=== PATIENT | female | born 1990 | race Caucasian/White ===

== ENCOUNTER 2018-06-07 15:35 | Inpatient (IN) | payer BC, SELFPAY ==
[~2018-06-07] VITALS: Ht 160 cm; Wt 69.9 kg
[~2018-06-07 15:35] MED LIST: LIDOCAINE PF 1% 30ML(POUR BTL) INJ ONE; MINERAL OIL 30 ML UDC PO ONE
[2018-06-07] MEDS ORDERED: OXYTOCIN/0.9 % SODIUM CHLORIDE 1,000 ML IV SCH (18:06)
[2018-06-07] MEDS ORDERED: DINOPROSTONE 10 MG SUPP VG ONE (18:15)
[2018-06-07] MEDS ORDERED: TERBUTALINE SULFATE 1 MG/ML VIAL SUBCUT ONE (18:15)
[2018-06-07 18:55] VITALS: BP_SYST 111
[2018-06-07 19:05] LABS: BASOPHILS % (AUTO) 0.4 % (0.0-2.0); EOSINOPHILS % (AUTO) 0.5 % (0.0-4.0); HEMATOCRIT 34.5 % (36-48); HEMOGLOBIN 11.8 g/dL (12.0-16.0); LYMPHOCYTES # (AUTO) 1.7 K/uL (1.0-5.5); LYMPHOCYTES % (AUTO) 18.1 % (20.5-51.5); MEAN CORPUSCULAR HEMOGLOBIN 34 pg (27-31); MEAN CORPUSCULAR HGB CONC 34 % (32-36); MEAN CORPUSCULAR VOLUME 99 fL (79.0-98.0); MONOCYTES # (AUTO) 0.6 K/uL (0.0-1.0); NEUTROPHILS # (AUTO) 7.3 K/uL (1.8-7.7); PLATELET COUNT (AUTO) 248 K/uL (130-430); RED BLOOD CELL COUNT(AUTO) 3.48 MIL/uL (4.2-6.2); RED CELL DISTRIBUTION WIDTH 12.1 % (9.0-15.0); WHITE BLOOD COUNT (AUTO) 9.6 K/uL (4.8-10.8)
[2018-06-07] MEDS ORDERED: BUPIVACAINE /PF 0.5% 30 ML VIAL EP ONE ×2 (20:00)
[2018-06-07] MEDS ORDERED: cefTRIAXone 1 GM VIAL ONE (21:00)
[2018-06-07] MEDS: cefTRIAXone 1 GM in D5W 50 ML IV SCH (21:00)
[2018-06-08] MEDS: LR 1,000 ML IV SCH ×3 (05:17→18:00)
[2018-06-08] MEDS: NALBUPHINE HCL 10 MG/ML AMP IVP PRN ×2 (13:08→18:50)
[2018-06-08] MEDS ORDERED: fentaNYL CITRATE/PF 100 MCG/2 ML AMP ONE ×3 (13:11→18:18)
[2018-06-08] MEDS ORDERED: ROPIVACAINE 0.2% 100 ML ONE ×2 (13:11→18:18)
[2018-06-08] MEDS ORDERED: LR 500 ML IV ONE (13:39)
[2018-06-08] MEDS ORDERED: FENT2mCg/mL-ROPIVA0.2%/NS EPID 150 ML EP SCH (13:45)
[2018-06-08] MEDS ORDERED: fentaNYL CITRATE/PF 100 MCG/2 ML AMP EP ONE (18:00)
[2018-06-08] MEDS: cefTRIAXone 1 GM in D5W 50 ML IV SCH (21:00)
[2018-06-09] MEDS: LR 1,000 ML IV SCH ×2 (00:20→09:30)
[2018-06-09] MEDS ORDERED: ROPIVACAINE 0.2% 100 ML ONE (02:34)
[2018-06-09] MEDS ORDERED: ACETAMINOPHEN 325 MG TABLET PO PRN ×2 (06:15→11:15)
[2018-06-09] MEDS ORDERED: cefTRIAXone 1 GM IVPB PREMIX 50 ML IV ONE ×2 (06:15→06:42)
[2018-06-09] MEDS ORDERED: ACETAMINOPHEN 325 MG TABLET ONE (06:32)
[2018-06-09] MEDS ORDERED: fentaNYL CITRATE/PF 100 MCG/2 ML AMP ONE (08:22)
[2018-06-09] MEDS ORDERED: OXYTOCIN/0.9 % SODIUM CHLORIDE 1,000 ML IV ONE (11:03)
[2018-06-09] MEDS ORDERED: OXYTOCIN/0.9 % SODIUM CHLORIDE 1,000 ML IV SCH (11:03)
[2018-06-09] MEDS ORDERED: RHO(D) IMMUNE GLOBULIN/MALTOSE 1500 UNITS/1.3 ML (WINHRO) IM PRN (11:15)
[2018-06-09] MEDS ORDERED: SENNOSIDES/DOCUSATE SODIUM 1 TAB TABLET(SENOKOT-S) PO PRN (11:15)
[2018-06-09] MEDS ORDERED: HYDROCORTISONE 0.5%, 28.35 GM TOPICAL CREAM TP PRN (11:15)
[2018-06-09] MEDS ORDERED: MEASLES,MUMPS&RUBELLA VACC/PF 12500 UNIT/0.5 ML VIAL SUBQ PRN (11:15)
[2018-06-09] MEDS ORDERED: WITCH HAZEL LEAF 1 MED.PAD MED.PAD TP PRN (11:15)
[2018-06-09] MEDS ORDERED: METHYLERGONOVINE MALEATE 0.2 MG TABLET PO PRN (11:15)
[2018-06-09] MEDS ORDERED: LANOLIN 7 GM OINT. TP PRN (11:15)
[2018-06-09] MEDS ORDERED: ANUSOL 1 EA SUPP.RECT (PREPARATION H) RC PRN (11:15)
[2018-06-09] MEDS ORDERED: DERMOPLAST SPRAY TP PRN (11:15)
[2018-06-09] MEDS ORDERED: DIPH-TET-PERTUS Vaccine 0.5 ML VIAL (ADACEL) I.M. PRN (11:15)
[2018-06-09] MEDS ORDERED: OXYCODONE/ACETAMINOPHEN 5-325 TABLET PO PRN ×2 (11:15)
[2018-06-09] MEDS: IBUPROFEN 600 MG TABLET PO SCH ×2 (12:28→17:54)
[2018-06-09] MEDS: DOCUSATE SODIUM 100 MG CAPSULE PO PRN (17:54)
[2018-06-09] MEDS ORDERED: TEMAZEPAM 15 MG CAPSULE PO PRN (21:00)
[2018-06-10] MEDS: IBUPROFEN 600 MG TABLET PO SCH ×3 (00:07→12:34)
[2018-06-10 07:21] LABS: HEMATOCRIT 26.2 % (36-48); HEMOGLOBIN 8.6 g/dL (12.0-16.0)
[2018-06-10] MEDS: DOCUSATE SODIUM 100 MG CAPSULE PO PRN (12:32)
== END 2018-06-10 14:52 | disposition home or self-care (01) | DRG 807 ==
LOC: SPU 17:33
PROVIDERS: ADMIT Obstetrics & Gynecology; ATTEND Obstetrics & Gynecology
PROC: 10E0XZZ Delivery of Products of Conception, External Approach (ICD-10-PCS; principal; 2018-06-09)
PROC: 0HQ9XZZ Repair Perineum Skin, External Approach (ICD-10-PCS; 2018-06-09)
PROC: 0UQMXZZ Repair Vulva, External Approach (ICD-10-PCS; 2018-06-09)
PROC: 3E0P7VZ Introduction of Hormone into Female Reproductive, Via Natural or Artificial Opening (ICD-10-PCS; 2018-06-09)
PROC: 3E0R3BZ Introduction of Anesthetic Agent into Spinal Canal, Percutaneous Approach (ICD-10-PCS; 2018-06-09)
PROC: 00HU33Z Insertion of Infusion Device into Spinal Canal, Percutaneous Approach (ICD-10-PCS; 2018-06-09)
DX: O70.0 First degree perineal laceration during delivery (principal); Z37.0 Single live birth; Z3A.40 40 weeks gestation of pregnancy
CPT/HCPCS: 36415; 85018-TC; 85025; 86592; 86886; 86900; 86901; 94760; J0696; J2001; J2300; J2590; J2795; J3010; J3490; J7060; J7120